=== PATIENT | female | born 1975 | race Two or more races ===

== ENCOUNTER 2019-02-08 12:59 | Day surgery (SDC) | payer MEDICAID, OTHER ==
[~2019-02-08] VITALS: Ht 152.4 cm; Wt 84.6 kg
[2019-02-08] MEDS ORDERED: NEURONTIN (14:25)
[2019-02-08] MEDS ORDERED: IBUPROFEN (14:25)
[2019-02-08] MEDS ORDERED: CELEXA (14:25)
[2019-02-08] MEDS ORDERED: PEPCID (14:25)
[2019-02-08] MEDS ORDERED: CARBAMAZEPINE (14:25)
[2019-02-08 14:41] VITALS: Ht 152.4 cm; Wt 84.6 kg
[2019-02-08 15:36] VITALS: BP 109/58; PULSE 58; RESP 18
--- NOTE | 2019-02-08 15:55 | PREAC ---
Date/Time of Note Date/Time of Note DATE: 02/08/19 TIME: 15:52 Anesthesia Eval and Record Evaluation Time Pre-Procedure Interview DATE: 02/08/19 TIME: 15:52 Age 44 Sex female NPO: 8 hrs Preoperative diagnosis Hematochezia, Heart Burn Planned procedure EGD, & Colonoscopy Past Medical History Past Medical History: Includes Neuro: Seizure disorder GI: Obesity Psych: Anxiety Surgery & Anesthesia Issues No known issue Meds Anticoagulation: No Beta Janessa within 24 hr: No Reason Beta Janessa not given: Pt. not on B-Janessa Reported Medications [Carbamazepine] No Conflict Check 02/08/19 [Celexa] No Conflict Check 02/08/19 [Neurontin] No Conflict Check 02/08/19 [Pepcid] No Conflict Check 02/08/19 [Ibuprofen] No Conflict Check 02/08/19 Meds reviewed: Yes Allergies Coded Allergies: No Known Allergy (Unverified , 02/08/19) Allergies Reviewed: Yes Labs/Studies Labs Reviewed: Reviewed by anesthesiologist test: Negative Studies: ECG (N/A), CXR (N/A) Pre-procedure Exam Last vitals Vital Signs Date Temp Pulse Resp B/P (MAP) Pulse Ox O2 O2 Flow FiO2 Time Delivery Rate 02/08/19 97.5 58 18 109/58 99 Room Air 15:36 (75) Airway: Adequate mouth opening, Adequate thyromental dist Mallampati: Mallampati II Teeth: Normal Lung: Normal Heart: Normal ASA Physical Status ASA physical status: 2 Emergency: None Planned Anesthetic General/MAC: MAC Planned Pain Management Parenteral pain med Pre-operative Attestations Prior to commencing anesthesia and surgery, the patient was re-evaluated, there was verification of: *The patient's identity *The results of appropriate recent lab work and preoperative vital signs *The above evaluation not changing prior to induction *Anesthetic plan, risk benefits, alternative and complications discussed with patient/family; questions answered; patient/family understands, accepts and wishes to proceed. NAVDEEP MARIANO MD Feb 08, 2019 15:55
[2019-02-08] MEDS ORDERED: PROPOFOL 60 ML ONE (16:38)
--- NOTE | 2019-02-08 16:39 | PAC ---
Date/Time of Note Date/Time of Note DATE: 02/08/19 TIME: 16:39 Post-Anesthesia Notes Post-Anesthesia Note Last documented vital signs Vital Signs Date Temp Pulse Resp B/P (MAP) Pulse Ox O2 O2 Flow FiO2 Time Delivery Rate 02/08/19 97.5 58 18 109/58 99 Room Air 16:36 (75) Activity: WNL Respiratory function: WNL Cardiovascular function: WNL Mental status: Baseline Pain reasonably controlled: Yes Hydration appropriate: Yes Nausea/Vomiting absent: Yes NAVDEEP MARIANO MD Feb 08, 2019 16:39
[2019-02-08 17:06] VITALS: BP 106/59; PULSE 77; RESP 20
== END 2019-02-08 19:26 | disposition home or self-care (01) ==
LOC: GIL 12:59
PROVIDERS: ATTEND Internal Medicine Gastroenterology
DX: K92.1 Melena (principal); K64.8 Other hemorrhoids; K44.9 Diaphragmatic hernia without obstruction or gangrene
CPT/HCPCS: 43239; 45378; 84703; 88305; 88312; Z7610